=== PATIENT | female | born 1975 | race Two or more races ===

== ENCOUNTER 2021-01-23 11:52 | Outpatient (CLI) | payer OTHER ==
[~2021-01-23 11:52] MED LIST: BENADRYL25 MG PO; MACROBID 100 M100 MG PO; OMEGA 3 1,0001 EACH PO; ULTRACET PO; VITAMIN D3 PO
== END 2021-01-23 15:58 | disposition home or self-care (01) ==
LOC: MAMO-SONO 11:52
PROVIDERS: ATTEND Surgery Plastic and Reconstructive Surgery
DX: N63.0 Unspecified lump in unspecified breast (principal)

== ENCOUNTER 2021-02-01 09:23 | Day surgery (SDC) | payer OTHER ==
[2021-02-01] MEDS ORDERED: NEURONTIN600 M1 PO (17:16)
== END 2021-02-02 03:00 | disposition home or self-care (01) ==
LOC: CIR.AMB 09:23
PROVIDERS: ATTEND Surgery Plastic and Reconstructive Surgery
DX: K42.0 Umbilical hernia with obstruction, without gangrene (principal); K40.90 Unilateral inguinal hernia, without obstruction or gangrene, not specified as recurrent; N64.81 Ptosis of breast; E65 Localized adiposity; L98.7 Excessive and redundant skin and subcutaneous tissue
CPT/HCPCS: 19342; 49650; 49653; 15830; 15847; 15877; C1789

== ENCOUNTER 2023-08-27 12:51 | Outpatient (CLI) | payer OTHER ==
[~2023-08-27 12:51] MED LIST changes: +NEURONTIN600 M1 PO
== END 2023-08-27 12:59 | disposition home or self-care (01) ==
LOC: MAMO 607 12:51 → MAMO-SONO 12:51 → MAMO 607 12:59
PROVIDERS: ATTEND Surgery Plastic and Reconstructive Surgery
DX: Z12.31 Encounter for screening mammogram for malignant neoplasm of breast (principal); N60.11 Diffuse cystic mastopathy of right breast; N64.4 Mastodynia